=== PATIENT | male | born 1990 | race Caucasian/White ===

== ENCOUNTER 2018-09-07 15:12 | Emergency (ER) | payer OTHER ==
[~2018-09-07] VITALS: Ht 185.4 cm; Wt 84.8 kg
[~2018-09-07 15:12] MED LIST: ATOM10; ATOMOXETINE; BUPR150T2; Bactrim Ds Tab1 EACH PO; Benadryl 50 mg50 MG PO; HYDACE5 PO; METPHE20ER; MULVITA; MUPI2TC TOP; Nix Lice Treatm59 ML TOP
== END 2018-09-07 16:26 | disposition home or self-care (01) ==
LOC: ER 15:12
DX: S71.111A Laceration without foreign body, right thigh, initial encounter (principal); W26.8XXA Contact with other sharp object(s), not elsewhere classified, initial encounter; F17.200 Nicotine dependence, unspecified, uncomplicated
CPT/HCPCS: 12002; 99282-25

== ENCOUNTER 2021-07-22 07:52 | Emergency (ER) | payer OTHER ==
[~2021-07-22] VITALS: Ht 188 cm; Wt 108.9 kg
[2021-07-22] MEDS ORDERED: AMOCLA875 PO (08:58)
[2021-07-22] MEDS ORDERED: IBUP800 PO (08:58)
== END 2021-07-22 09:18 | disposition home or self-care (01) ==
LOC: ER 07:52
DX: H66.92 Otitis media, unspecified, left ear (principal); F17.200 Nicotine dependence, unspecified, uncomplicated
CPT/HCPCS: A9270

== ENCOUNTER 2021-10-28 21:07 | Emergency (ER) | payer OTHER ==
[~2021-10-28] VITALS: Ht 182.9 cm; Wt 104.3 kg
[~2021-10-28 21:07] MED LIST changes: +AMOCLA875 PO; +IBUP800 PO
[2021-10-28] MEDS ORDERED: Veetids 500500 MG PO (22:27)
== END 2021-10-28 22:49 | disposition home or self-care (01) ==
LOC: ER 21:07
DX: J02.0 Streptococcal pharyngitis (principal); F17.200 Nicotine dependence, unspecified, uncomplicated
CPT/HCPCS: 87430; 99282; A9270

== ENCOUNTER 2022-03-26 02:25 | Emergency (ER) | payer OTHER ==
[~2022-03-26] VITALS: Ht 185.4 cm; Wt 114.8 kg
[~2022-03-26 02:25] MED LIST changes: +Veetids 500500 MG PO
[2022-03-26] MEDS ORDERED: CEPH500 PO (04:09)
[2022-03-26] MEDS ORDERED: IBUP800 PO (04:09)
== END 2022-03-26 04:25 | disposition home or self-care (01) ==
LOC: ER 02:25
DX: L03.116 Cellulitis of left lower limb (principal); F15.90 Other stimulant use, unspecified, uncomplicated; B35.3 Tinea pedis; F17.210 Nicotine dependence, cigarettes, uncomplicated; Z79.899 Other long term (current) drug therapy
CPT/HCPCS: A9270

== ENCOUNTER 2022-05-02 13:48 | Emergency (ER) | payer OTHER ==
[~2022-05-02] VITALS: Ht 185.4 cm; Wt 122.5 kg
[~2022-05-02 13:48] MED LIST changes: +CEPH500 PO
[2022-05-02] MEDS ORDERED: AMOCLA875 PO (14:13)
== END 2022-05-02 15:20 | disposition home or self-care (01) ==
LOC: ER 13:48
DX: K04.7 Periapical abscess without sinus (principal); F17.210 Nicotine dependence, cigarettes, uncomplicated
CPT/HCPCS: 99282

== ENCOUNTER → 2022-06-25 | Outpatient (CLI) | payer OTHER | END | disposition home or self-care (01) | LOC: LAB 12:00 → LAB SHORT 12:00 | DX: J36 Peritonsillar abscess (principal) | CPT/HCPCS: 87070; 87075; 87147; 87205 ==

== ENCOUNTER 2023-11-30 17:38 | Emergency (ER) | payer OTHER ==
[~2023-11-30] VITALS: Ht 182.9 cm; Wt 117.9 kg
[2023-11-30 18:01] VITALS: BP 153/100
[2023-11-30] MEDS ORDERED: Amoxicillin/Clavulanate K 875 MG Tab PO ONE (18:30)
[2023-11-30] MEDS ORDERED: AMOCLA875 PO (18:32)
== END 2023-11-30 18:47 | disposition home or self-care (01) ==
LOC: ER 17:38
DX: J02.0 Streptococcal pharyngitis (principal); F17.210 Nicotine dependence, cigarettes, uncomplicated
CPT/HCPCS: 87430; 99283; A9270

== ENCOUNTER 2024-03-19 00:07 | Emergency (ER) | payer OTHER ==
[~2024-03-19] VITALS: Ht 185.4 cm; Wt 117.9 kg
[2024-03-19] MEDS ORDERED: PredniSONE 20 MG Tab PO ONE (03:00)
[2024-03-19] MEDS ORDERED: Prednisone10 MG PO (03:02)
[2024-03-19 03:15] VITALS: BP 138/73
== END 2024-03-19 03:30 | disposition home or self-care (01) ==
LOC: ER 00:07
DX: L23.7 Allergic contact dermatitis due to plants, except food (principal); F17.210 Nicotine dependence, cigarettes, uncomplicated
CPT/HCPCS: 99282; J7512

== ENCOUNTER 2024-09-27 05:59 | Emergency (ER) | payer OTHER ==
[~2024-09-27] VITALS: Ht 185.4 cm; Wt 117.9 kg
[~2024-09-27 05:59] MED LIST changes: +Prednisone10 MG PO
[2024-09-27 06:31] VITALS: BP 151/98
== END 2024-09-27 07:28 | disposition home or self-care (01) ==
LOC: ER 05:59
DX: L55.0 Sunburn of first degree (principal); F17.210 Nicotine dependence, cigarettes, uncomplicated; Z91.09 Other allergy status, other than to drugs and biological substances
CPT/HCPCS: 99282

== ENCOUNTER 2025-01-29 15:19 | Emergency (ER) | payer OTHER ==
[~2025-01-29] VITALS: Ht 182.9 cm; Wt 117.9 kg
[2025-01-29 15:58] VITALS: BP 148/100
[2025-01-29] MEDS ORDERED: Dexamethasone Sod Phos 10 MG/ML 1ML VIAL PO ONE (16:35)
== END 2025-01-29 17:13 | disposition home or self-care (01) ==
LOC: ER 15:19
DX: J02.9 Acute pharyngitis, unspecified (principal); F17.210 Nicotine dependence, cigarettes, uncomplicated; Z79.52 Long term (current) use of systemic steroids; Z88.8 Allergy status to other drugs, medicaments and biological substances
CPT/HCPCS: 87081; 87430; 99283; J1100